=== PATIENT | male | born 1980 | race Caucasian/White ===

== ENCOUNTER → 2019-06-01 | Outpatient (CLI) | payer OTHER, BC ==
[2019-06-01 16:48] LABS: Adenovirus F 40/41 Not Detected (NOT DETECT); Astrovirus Not Detected (NOT DETECT); Campylobacter Sp Not Detected (NOT DETECT); Cryptosporidium Not Detected (NOT DETECT); Cyclospora Cayetanensis Not Detected (NOT DETECT); E. Coli O157 Not Detected (NOT DETECT); Entamoeba Histolytica Not Detected (NOT DETECT); Enteroaggregative E. coli-EAEC Not Detected (NOT DETECT); Enteropathogenic E. coli-EPEC Not Detected (NOT DETECT); Enterotoxigenic E. coli-ETEC Not Detected (NOT DETECT); Giardia Lamblia Not Detected (NOT DETECT); Norovirus GI/GII Not Detected (NOT DETECT); Plesiomonas Shigelloides Not Detected (NOT DETECT); Rotavirus A Not Detected (NOT DETECT); Salmonella Sp Not Detected (NOT DETECT); Sapovirus Not Detected (NOT DETECT); Shiga Toxin-prod E. coli-STEC Not Detected (NOT DETECT); Shigella/Enteroin E. coli-EIEC Not Detected (NOT DETECT); Vibrio Cholerae Not Detected (NOT DETECT); Vibrio Sp Not Detected (NOT DETECT); Yersinia Enterocolitica Not Detected (NOT DETECT)
== END ==
LOC: LAB 14:51 → LAB SHORT 14:51
PROVIDERS: Surgery
DX: A07.1 Giardiasis [lambliasis] (principal); R19.7 Diarrhea, unspecified
CPT/HCPCS: 0097U

== ENCOUNTER 2024-05-07 08:52 | Day surgery (SDC) | payer OTHER ==
[2024-05-07] VITALS (9 sets, daily range): BP systolic 102–135; BP diastolic 86–98
[~2024-05-07] VITALS: Ht 176 cm; Wt 92.0 kg
[~2024-05-07 08:52] MED LIST: ACETAMINOPHEN PO; Ampicillin Sod/Sulbactam Sod 3 GM in NS 100 ML IV SCH; IBUP400 PO; Lactated Ringer's 1,000 ML IV SCH; SULTRIDS PO
[2024-05-07] MEDS ORDERED: Bupivacaine 0.5% Inj 10 ML Vial ONE (09:18)
[2024-05-07] MEDS ORDERED: propofoL 20 ML IV ONE (09:39)
[2024-05-07] MEDS ORDERED: FentaNYL Citrate 50 MCG/ML 2 ML Injection ONE ×2 (09:39→10:47)
[2024-05-07] MEDS ORDERED: Rocuronium Bromide 10 MG/ML 5ML Injection IV ONE (09:40)
[2024-05-07] MEDS ORDERED: SuccINYLCHOLINE Chloride 100 MG/5 ML 5MLSYR ONE (09:40)
--- NOTE | 2024-05-07 09:44 | NUR ---
History, Chart, Medications and Allergies reviewed before start of procedure. Patient up to Ambulate independently. Gait steady. Pre-Op teaching done. Pt verbalizes understanding. Patient confirms NPO status and agrees with scheduled surgery. Lungs clear T/O to Auscultation. Patient States Post-Procedure ride home has been arranged.
[2024-05-07] MEDS ORDERED: Triple Antibiotic Ointment 30 gm ONE (10:09)
[2024-05-07] MEDS ORDERED: Dexamethasone Sod Phos 10 MG/ML 1ML VIAL ONE (10:12)
[2024-05-07] MEDS ORDERED: Ondansetron HCl 2 MG / ML 2ML Vial ONE (10:12)
[2024-05-07] MEDS ORDERED: OxyCODONE 5 mg/Acetamin 325 mg TABLET PO PRN (10:45)
--- NOTE | 2024-05-07 11:19 | NUR ---
Discharge instructions reviewed with patient. Patient verbalizes understanding. Copy given to patient to take home.
== END 2024-05-07 11:21 | disposition home or self-care (01) ==
LOC: ORSCMMR 08:52 → ORD 05-08 09:00 → ORSCMMR 05-08 10:00
PROVIDERS: Surgery
PROC: 06BY0ZC Excision of Hemorrhoidal Plexus, Open Approach (ICD-10-PCS; principal; 2024-05-07 10:00)
PROC: 0DBQ7ZZ Excision of Anus, Via Natural or Artificial Opening (ICD-10-PCS; principal; 2024-05-07 10:00)
DX: K60.3 Anal fistula (principal); K21.9 Gastro-esophageal reflux disease without esophagitis; F43.10 Post-traumatic stress disorder, unspecified
CPT/HCPCS: A9270; J0295; J0330; J1100; J2405; J2704; J3010; J7120